=== PATIENT | male | born 1975 | race Two or more races ===

== ENCOUNTER 2024-07-17 07:49 | Inpatient (IN) | payer MEDICAID, OTHER ==
[~2024-07-17] VITALS: Ht 180.3 cm; Wt 110.5 kg
--- NOTE | 2024-07-17 08:14 | ED.PDOC ---
GI ASSESSMENT HPI Comments 48Y M with PMHx DM and cholecystectomy presents to ED for chief complaint n/v/d x1day. Pt denies chest pain, SOB, abd pain, and urinary symptoms. Pt states they were dx with PNA and influenza 3 weeks ago at a hospital in [place]. The pt was also seen last night in [facility] where he was dx with colitis after having a CT performed. Pt is unaware of further CT results. Pt has not picked up his medications. No other symptoms reported. Pt states he quit smoking tobacco one week ago. Chief Complaint: Nausea/Vomiting Time Seen by MD: 07:57 Reviewed Notes: Nurses Notes, Medications, Allergies Allergies: Coded Allergies: Sulfamethoxazole w/Trimethoprim (Unverified Allergy, Severe, 08/05/18) Information Source: Patient Mode of Arrival: Ambulatory Timing: Days Duration: Since onset Quality: None Vomitus: Watery Stool: Loose, Watery Severity: Mild Recent: None Recent Hx of: None Pain Location: None Modifying Factors: Nothing Associated sign and symptoms: Nausea, Vomiting, Diarrhea Past Medical History PAST MEDICAL HISTORY: DM Surgical History: Cholecystectomy Family History Family History: Unknown Social History Smoker: Quit Less Than 1 Year (07/10/2024) Alcohol: Denies ETOH Use Drugs: Denies Drug Use Lives In: Home Constitutional: denies: chills, diaphoresis, fatigue, fever, malaise, sweats, weakness, others EENTM: denies: blurred vision, double vision, ear bleeding, ear discharge, ear drainage, ear pain, ear ringing, eye pain, eye redness, hearing loss, mouth pain, mouth swelling, nasal discharge, nose bleeding, nose congestion, nose pain, photophobia, tearing, throat pain, throat swelling, voice changes, others Respiratory: denies: cough, hemoptysis, orthopnea, SOB at rest, shortness of breath, SOB with excertion, stridor, wheezing, others Cardiovascular: denies: chest pain, dizzy spells, diaphoresis, Dyspnea on exertion, edema, irregular heart beat, left arm pain, lightheadedness, palpitations, PND, syncope, others Gastrointestinal: reports: diarrhea, nausea, vomiting; denies: abdomen distended, abdominal pain, blood streaked bowels, constipated, dysphagia, difficulty swallowing, hematemesis, melena, poor appetite, poor fluid intake, rectal bleeding, rectal pain, others Genitourinary: denies: burning, dysuria, flank pain, frequency, hematuria, incontinence, penile discharge, penile sore, pain, testicle pain, testicle swelling, urgency, others Neurological: denies: dizziness, fainting, headache, left sided numbness, left sided weakness, numbness, paresthesia, pre-existing deficit, right sided numbness, right sided weakness, seizure, speech problems, tingling, tremors, weakness, others Musculoskeletal: denies: back pain, gout, joint pain, joint swelling, muscle pain, muscle stiffness, neck pain, others Integumetry: denies: bruises, change in color, change in hair/nails, dryness, laceration, lesions, lumps, rash, wounds, others Allergic/Immunocompromised: denies: Difficulty Healing, Frequent Infections, Hives, Itching, others Hematologic/Lymphatic: denies: anemia, blood clots, easy bleeding, easy b ruising, swollen glands, others Endocrine: denies: excessive hunger, excessive sweating, excessive thirst, excessive urination, flushing, intolerance to cold, intolerance to heat, unexplained weight gain, unexplained weight loss, others Psychiatric: denies: anxiety, bipolar disorder, depression, hopeless, panic disorder, schizophrenia, sleepless, suicidal, others All Other Systems: Reviewed and Negative Physical Exam General Appearance: No Apparent Distress, Normal HEENT: Normal ENT Inspection, Pharynx Normal, TMs Normal Neck: Full Range of Motion, Non-Tender, Normal, Normal Inspection Respiratory: Chest Non-Tender, Lungs Clear, No Accessory Muscle Use, No Respiratory Distress, Normal Breath Sounds Cardiovascular: No Edema, No JVD, No Murmur, No Gallop, Normal Peripheral Pulses, Regular Rate/Rhythm Breast Exam: Deferred Gastrointestinal: No Organomegaly, Non Tender, No Pulsatile Mass, Normal Bowel Sounds, Soft Genitalia: Deferred Pelvic: Deferred Rectal: Deferred Extremities: No calf tenderness, Normal capillary refill, Normal inspection, Normal range of motion, Non-tender, No pedal edema Musculoskeletal : Apperance: Normal Neurologic: Alert, free lance model II-XII nml as Tested, No Motor Deficits, Normal Affect, Normal Mood, No Sensory Deficits Cerebellar Function: Normal Reflexes: Normal Skin: Dry, Normal Color, Warm Lymphatic: No Adenopathy Was a procedure done? Was a procedure done?: No GI differential Dx Differential Diagnosis: Appendicitis, Bowel Obstruction, Cholangitis, Cholecystitis, Constipation, Diverticular disease, Gastritis/PUD, Gastroenteritis, Hernia, Hepatitis, Pancreatitis, Urolithiasis, Dehydration, Diabetes/ DKA, Electrolyte Imbalance, Food Poisoning, Bacterial, Parasitic, Viral, Hypovolemia, Impaction, Malnutrition X-Ray, Labs, Meds, VS Vital Signs Date Time Temp Pulse Resp B/P (MAP) Pulse Ox O2 Delivery O2 Flow Rate FiO2 07/17/24 11:31 98.1 98 15 118/76 (90) 97 98.1 07/17/24 09:34 101 16 120/72 07/17/24 09:04 103 16 125/79 07/17/24 09:00 103 16 98 Room Air* 0 21 07/17/24 09:00 97.6 103 16 125/79 (94) 98 97.6 07/17/24 08:04 97.6 104 18 119/69 (86) 99 Lab Test 07/17/24 09:53 07/17/24 09:04 07/17/24 08:47 07/17/24 08:45 Range/Units Sodium Level 131 L 136-145 mmol/L Potassium Level 5.8 *H 3.5-5.1 mmol/L Chloride Level 103 98-107 mmol/L Carbon Dioxide Level 22 20-31 mmol/L Anion Gap 6 5-15 Blood Urea Nitrogen 36 H 9-23 mg/dL Creatinine 2.05 H 0.700-1.30 mg/dL Glomerular Filtration Rate Calc 39 >90 mL/min BUN/Creatinine Ratio 17.6 10.0-20.0 Serum Glucose 323 H 74-106 mg/dL Calcium Level 8.9 8.7-10.4 mg/dL Total Bilirubin 0.5 0.2-1.0 mg/dL Aspartate Amino Transferase (AST) 19 13-40 U/L Alanine Aminotransferase (ALT) 31 7-40 U/L Alkaline Phosphatase 120 H 46-116 U/L Total Protein 7.0 5.7-8.2 g/dL Albumin 3.9 3.2-4.8 g/dL Lipase 192 H 12-53 U/L Urine Color Yellow Yellow Urine Clarity Turbid H Clear Urine pH 6.0 5.0-9.0 Urine Specific [place] 1.017 1.001-1.035 Urine Protein 3+ H Negative Urine Ketones Negative Negative Urine Blood 1+ H Negative /uL Urine Nitrite Negative Negative Urine Bilirubin Negative Negative Urine Urobilinogen Normal Negative mg/dL Urine Leukocyte Esterase Negative Negative /uL Urine RBC 1 0 - 3 /hpf Urine WBC 4 0 - 3 /hpf Urine Squamous Epithelial Cells None seen <5 /hpf Urine Bacteria None seen None Seen /hpf Urine Hyaline Casts Few 0 - 2 /lpf Urine Glucose 4+ H Normal mg/dL Urine Opiates Screen Neg NEGATIVE Urine Fentanyl Screen Neg NEGATIVE Urine Barbiturates Screen Neg NEGATIVE Urine Phencyclidine Screen Neg NEGATIVE Urine Amphetamines Screen Pos NEGATIVE Urine Benzodiazepines Screen Neg NEGATIVE Urine Cocaine Screen Neg NEGATIVE Urine Cannabinoids Screen Pos NEGATIVE Blood Gas Specimen Type Arterial Blood Gas Sample Site Right radial Blood Gas Patient Temperature 37.0 Arterial Blood Date Drawn [id number] Arterial Blood pH 7.348 L 7.350-7.450 Arterial Blood Partial Pressure CO2 32.2 L 35.0-48.0 mmHg Arterial Blood Partial Pressure O2 79.9 L 83.0-108.0 mmHg Arterial Blood HCO3 17.3 L 21.0-28.0 mmol/L Arterial Blood Oxygen Saturation 94.8 94.0-98.0 % Arterial Blood Base Excess -7.2 L -2.0-3.0 mmol/L Arterial Blood Oxyhemoglobin 93.7 L 94.0-98.0 % Arterial Blood Carboxyhemoglobin 0.7 0.5-1.5 % Arterial Blood Methemoglobin 0.5 0.0-1.5 % Abhay Test Yes Blood Gas Total Hemoglobin 13.20 L 13.5-17.5 g/dL Blood Gas Modality Room air FiO2 % 21.0 White Blood Count 14.5 H 4.4-10.8 10^3/uL Red Blood Count 4.30 L 4.5-5.90 10^6/uL Hemoglobin 12.5 L 13.5-17.5 g/dL Hematocrit 37.5 L 41.0-53.0 % Mean Corpuscular Volume 87.2 80.0-100.0 fL Mean Corpuscular Hemoglobin 29.1 28.0-32.0 pg Mean Corpuscular Hemoglobin Concent 33.4 32.0-36.0 g/dL Red Cell Distribution Width 14.8 H 11.8-14.3 % Platelet Count 686 H 140-450 10^3/uL Mean Platelet Volume 7.1 6.9-10.8 fL Neutrophils (%) (Auto) 77.6 37.0-80.0 % Lymphocytes (%) (Auto) 10.8 10.0-50.0 % Monocytes (%) (Auto) 10.3 0.0-12.0 % Eosinophils (%) (Auto) 1.0 0.0-7.0 % Basophils (%) (Auto) 0.3 0.0-2.0 % Neutrophils # (Auto) 11.2 H 1.6-8.6 10 ^3/uL Lymphocytes # (Auto) 1.6 0.4-5.4 10 ^3/uL Monocytes # (Auto) 1.5 H 0-1.3 10 ^3/uL Eosinophils # (Auto) 0.1 0-0.8 10 ^3/uL Basophils # (Auto) 0 0-0.2 10 ^3/uL Nucleated Red Blood Cells 0.0 % Test 07/17/24 08:43 07/17/24 07:58 Range/Units Influenza Type A Antigen Negative Negative Influenza Type B Antigen Negative Negative SARS-CoV-2 Antigen (Rapid) Negative NEGATIVE POC Glucose 286 H 70-106 mg/dl Current Medications Medications (Trade) Dose Ordered Sig/Beatris Route Start Time Stop Time Status Last Admin Sodium Chloride 1,000 ml @ 100 mls/hr Q10H ONCE IV 07/17/24 08:15 07/17/24 18:14 07/17/24 09:35 Ondansetron HCl (Zofran) 4 mg ONCE ONCE IV 07/17/24 08:15 07/17/24 08:16 DC 07/17/24 09:05 Morphine Sulfate 2 mg ONCE ONCE IV 07/17/24 08:15 07/17/24 08:16 DC 07/17/24 09:04 Insulin Human Regular (InsuLIN R) 6 units ONCE ONCE IV 07/17/24 08:45 07/17/24 08:46 DC 07/17/24 09:[address] [address] Ph: [phone] DIAGNOSTIC IMAGING Diagnostic Imaging Report : [id number] Signed PATIENT: SAVI HERNANDEZ ACCT: [id number] UNIT: [id number] : 1975 LOC: ER ROOM / BED: / AGE / SEX: 48 / M ADM STATUS: REG ER SERVICE 4 ORDERING PHYSICIAN: ROBINSON NUGENT MD PROCEDURE(s): ABPL - CT AB PEL WO CON-NO ORAL OR IV REASON: pain, n/v/d ORDER NUMBER(s): [id number], ACCESSION NUMBER(s): [id number] EXAM: CT Abdomen and Pelvis Without Intravenous Contrast CLINICAL INDICATION: pain, n/v/d TECHNIQUE: Axial computed tomography images of the abdomen and pelvis without intravenous contrast. This CT exam was performed using one or more of the following dose reduction techniques: automated exposure control, adjustment of the mA and/or kV according to patient size, and/or use of iterative reconstruction technique. RADIATION DOSE: CTDlvol= 24 mGy, DLP= 4032 mGy-cm COMPARISON: None FINDINGS: LUNG BASES: Partially visualized 5mm nodule in the left lung base. No consolidation. ABDOMEN: LIVER: Hepatomegaly with fatty infiltration. GALLBLADDER AND BILE DUCTS: Gallbladder is surgically absent. No ductal dilation. PANCREAS: Unremarkable. No ductal dilation. SPLEEN: Unremarkable. No splenomegaly. ADRENALS: Unremarkable. No mass. KIDNEYS AND URETERS: Unremarkable. No stones within either kidney. No hydronephrosis. STOMACH AND BOWEL: Unremarkable. No obstruction. No mucosal thickening. PELVIS: APPENDIX: Normal appendix. BLADDER: Bladder wall thickening which may be due to the decompressed state of the bladder or due to cystitis. No stones. REPRODUCTIVE: Unremarkable as visualized. ABDOMEN and PELVIS: INTRAPERITONEAL SPACE: Unremarkable. No free air. No significant fluid collection. BONES/JOINTS: No acute fracture. No dislocation. SOFT TISSUES: Unremarkable. VASCULATURE: Unremarkable. No abdominal aortic aneurysm. LYMPH NODES: Unremarkable. No enlarged lymph nodes. OTHER FINDINGS: . . . . IMPRESSION: 1. Normal appendix. 2. Bladder wall thickening which may be due to the decompressed state of the bladder or due to cystitis. 3. Hepatomegaly with fatty infiltration. 4. No obstructive uropathy. ATED BY: JORGE PANDEY MD DICTATED DATE/TIME: 07/17/24833 SIGNED BY: JORGE PANDEY MD SIGNED DATE/TIME: 07/17/24833 CC: Time of 1ST Reevaluation: 08:27 Reevaluation 1ST: Unchanged Time of 2ND Reevaluation: 11:57 Reevaluation 2ND: Improved Patient Education/Counseling: Diagnosis, Treatment, Prognosis, Need For Follow Up Family Education/Counseling: No Family Present Additional Information I reviewed the following notes from patient's past medical encounters: None The following tests were ordered, and results were reviewed by me: CBC, CMP, lipase, UA, covid 19 Ag, rapid influenza A&B, ABG, CT abd/pelvis WO contrast Additional Information was gathered from interviewing the following independent historians: None I reviewed and agreed with the following test results read by other providers: CT abd/pelvis WO contrast I discussed treatment and results with medical personnel. pt is diabetic, clinically dehydrated, with uncontrolled hyperglycemia, but is also on methamphetamine. pt will be admitted for hydration, emesis control and make sure he does not deteriorate into DKA. pt has been given ivf and insulin, and his k will be rechecked Departure 1 Departure Time of Disposition: 11:58 Impression: Primary Impression: Intractable nausea Additional Impressions: Uncontrolled diabetes mellitus with hyperglycemia Qualified Codes: E13.65 - Other specified diabetes mellitus with hyperglycemia Dehydration Hyperkalemia Methamphetamine abuse Disposition: ADMITTED INPATIENT Admit to: Tele Condition: Serious Discharged With: Self Critical Care Note Critical Care Time?: Yes (55 min-critical care time only) Critical care comment: Due to concerns for patients condition deteriorating, the care required my highest level of attention and readiness to intervene. I assessed the patient, reviewed the medical records, ordered the appropriate tests and treatments, then reassessed for results and responsiveness. I communicated with medical personnel and consultants and formulated a plan of care. Total critical care time excludes any procedures Stability Stability form required: No Heart Score Heart Score: Heart Score Response (Comments) Value History N/A 0 EKG N/A 0 Age N/A 0 Risk Factors N/A 0 Troponin N/A 0 Total 0 I personally scribed for ROBINSON NUGENT MD ([facility]) on 07/17/24 at 08:14. El ectronically submitted by Stacey Su ([facility]). I personally scribed for ROBINSON NUGENT MD ([employer]) on 07/17/24 at 09:13. Electronically submitted by Stacey Su ([facility]). ROBINSON NUGENT MD Jul 17, 2024 08:14
--- NOTE | 2024-07-17 08:36 | DVH ---
EXAM: CT Abdomen and Pelvis Without Intravenous Contrast CLINICAL INDICATION: pain, n/v/d TECHNIQUE: Axial computed tomography images of the abdomen and pelvis without intravenous contrast. This CT exam was performed using one or more of the following dose reduction techniques: automated exposure control, adjustment of the mA and/or kV according to patient size, and/or use of iterative r econstruction technique. RADIATION DOSE: CTDlvol= 24 mGy, DLP= 4032 mGy-cm COMPARISON: None FINDINGS: LUNG BASES: Partially visualized 5mm nodule in the left lung base. No consolidation. ABDOMEN: LIVER: Hepatomegaly with fatty infiltration. GALLBLADDER AND BILE DUCTS: Gallbladder is surgically absent. No ductal dilation. PANCREAS: Unremarkable. No ductal dilation. SPLEEN: Unremarkable. No splenomegaly. ADRENALS: Unremarkable. No mass. KIDNEYS AND URETERS: Unremarkable. No stones within either kidney. No hydronephrosis. STOMACH AND BOWEL: Unremarkable. No obstruction. No mucosal thickening. PELVIS: APPENDIX: Normal appendix. BLADDER: Bladder wall thickening which may be due to the decompressed state of the bladder or due to cystitis. No stones. REPRODUCTIVE: Unremarkable as visualized. ABDOMEN and PELVIS: INTRAPERITONEAL SPACE: Unremarkable. No free air. No significant fluid collection. BONES/JOINTS: No acute fracture. No dislocation. SOFT TISSUES: Unremarkable. VASCULATURE: Unremarkable. No abdominal aortic aneurysm. LYMPH NODES: Unremarkable. No enlarged lymph nodes. OTHER FINDINGS: . . . . IMPRESSION: 1. Normal appendix. 2. Bladder wall thickening which may be due to the decompressed state of the bladder or due to cysti tis. 3. Hepatomegaly with fatty infiltration. 4. No obstructive uropathy.
[2024-07-17 08:50] LABS: Base Excess -7.2 mmol/L (-2.0-3.0)
[2024-07-17 09:00] VITALS: PULSE 103; RESP 16; O2SAT 98
[2024-07-17 09:04] LABS: Basophils # (auto) 0 10 ^3/uL (0-0.2); Eosinophils # (auto) 0.1 10 ^3/uL (0-0.8); Hemoglobin 12.5 g/dL (13.5-17.5)
[2024-07-17] MEDS: MORPHINE SULFATE INJ 2 MG/ml SYRG IV ONE (09:04)
[2024-07-17] MEDS: ONDANSETRON HCL 4 MG/2 ML VIAL IV ONE (09:05)
[2024-07-17 09:08] LABS: Basophils % (auto) 0.3 % (0.0-2.0); Hematocrit 37.5 % (41.0-53.0); Lymphocytes # (auto) 1.6 10 ^3/uL (0.4-5.4); Lymphocytes % (auto) 10.8 % (10.0-50.0); Mean Corpuscular Hemoglobin 29.1 pg (28.0-32.0); Mean Corpuscular Hgb Conc. 33.4 g/dL (32.0-36.0); Mean Corpuscular Volume 87.2 fL (80.0-100.0); Monocytes # (auto) 1.5 10 ^3/uL (0-1.3); Monocytes % (auto) 10.3 % (0.0-12.0); Neutrophils # (auto) 11.2 10 ^3/uL (1.6-8.6); Neutrophils % (auto) 77.6 % (37.0-80.0); Platelet Count (auto) 686 10^3/uL (140-450); Red Cell Distribution Width 14.8 % (11.8-14.3); White Blood Cell 14.5 10^3/uL (4.4-10.8)
[2024-07-17] MEDS: SODIUM CHLORIDE 0.9% 1,000 ML IV ONE ×2 (09:35→12:25)
[2024-07-17 09:37] LABS: COVID19 ANTIGEN SOFIA FIA NEGATIVE (NEGATIVE)
[2024-07-17 09:38] LABS: Rapid Influenza A Negative (Negative); Rapid Influenza B Negative (Negative)
[2024-07-17] MEDS: InsuLIN REG 1unit/0.01ml Soln (100units/ml) IV ONE (09:40)
[2024-07-17 10:20] LABS: Anion Gap 6 (5-15)
[2024-07-17 10:25] LABS: BUN/Creatinine Ratio 17.6 (10.0-20.0)
[2024-07-17 10:34] LABS: Sodium 131 mmol/L (136-145)
[2024-07-17 10:35] LABS: Alanine Aminotransferase 31 U/L (7-40); Albumin 3.9 g/dL (3.2-4.8); Alkaline Phosphatase 120 U/L (46-116); Aspartate Aminotransferase 19 U/L (13-40); Bilirubin, Total 0.5 mg/dL (0.2-1.0); Blood Urea Nitrogen 36 mg/dL (9-23); Calcium 8.9 mg/dL (8.7-10.4); Carbon Dioxide 22 mmol/L (20-31); Chloride 103 mmol/L (98-107); Glucose 323 mg/dL (74-106)
[2024-07-17 10:37] LABS: Potassium 5.8 mmol/L (3.5-5.1)
[2024-07-17 11:04] LABS: Lipase 192 U/L (12-53)
[2024-07-17 11:34] LABS: Urine Bacteria None Seen /hpf (None Seen)
[2024-07-17 11:44] LABS: Urine Blood 1+ /uL (Negative); Urine Clarity Turbid (Clear); Urine Color Yellow (Yellow); Urine Hyaline Cast FEW /lpf (0 - 2); Urine Protein, UAD 3+ (Negative); Urine Specific Gravity 1.017 (1.001-1.035); Urine Squamous Epithelial Cell None Seen /hpf (<5); Urine Urobilinogen Normal (Negative); Urine WBC 4 /hpf (0 - 3)
[2024-07-17 11:54] LABS: Cannabinoid Screen, Urine Pos (NEGATIVE); Opiate Scree,Urine Neg (NEGATIVE)
[2024-07-17 11:55] LABS: Amphetamine Screen, Urine Pos (NEGATIVE); Barbiturate Scree,Urine Neg (NEGATIVE); Benzodiazephine Screen, Urine Neg (NEGATIVE); Cocaine Screen, Urine Neg (NEGATIVE); Phencyclidine Screen, Urine Neg (NEGATIVE)
[2024-07-17] MEDS ORDERED: DEXTROSE (50%) 50ML SYRG IV PRN (13:30)
[2024-07-17] MEDS ORDERED: VANCOMYCIN PER PHARMACY 0 MG IV SCH (13:30)
[2024-07-17] MEDS ORDERED: ONDANSETRON HCL 4 MG/2 ML VIAL IV PRN (13:30)
--- NOTE | 2024-07-17 13:39 | DVHHP2 ---
History of Present Illness Reason for Visit: Nausea, vomiting, diarrhea, and abdominal pain History of Present Illness Abhishek Lai is a 48-year-old male with past medical history of hypertension, diabetes, diabetic neuropathy, ventral hernia, and cholecystectomy who presents to the ED with nausea, vomiting, diarrhea, and abdominal pain x2 days. Patient reports that his abdominal pain is 7/10 constant and throbbing. He states that there are no triggering or alleviating factors. Patient states that he was just recently discharged from [facility] and diagnosed with colitis. Patient also states that before that he was at [facility] diagnosed with a UTI and received and completed antibiotic treatment. Patient denies any recent ingestion of spoiled food, recent sick contacts, chest pain, shortness of breath , fever, chills, lightheadedness, and dizziness. Patient does report that he was sick 3 weeks ago with a cold. Cardiovascular: HTN Endocrine: Diabetes Past Medical History Diabetic neuropathy Ventral Hernia Past Surgical History: Cholecystectomy Family History: DM, Other (Dad with diabetes) Smoke: Quit ALCOHOL: none Drugs: Marijuana, Other (Amphetamines) Lives: with Family Domestic Violence: Neg Review of Systems Constitutional: No: Fever, Chills, Sweats, Weakness, Malaise, Other Eyes: No: Pain, Vision change, Conjunctivae inflammation, Eyelid inflammation, Other, Redness ENT: No: Ear pain, Ear discharge, Nose pain, Nose discharge, Nose congestion, Mouth pain, Mouth swelling, Throat pain, Throat swelling, Other Respiratory: No: Cough, Dry, Shortness of breath, SOB with excertion, Wheezing, Hemoptysis, Pleuritic Pain, Sputum, Wheezing, Other Cardiovascular: No: Chest Pain, Palpitations, Orthopnea, Paroxysmal Noc. Dyspnea, Edema, Lt Headedness, Other Gastrointestinal: Nausea, Vomiting, Abdominal Pain, Diarrhea; No: Constipation, Melena, Hematochezia, Other Genitourinary: No Dysuria, No Frequency, No Incontinence, No Hematuria, No Retention, No Other Musculoskeletal: No: other, neck pain, shoulder pain, arm pain, back pain, hand pain, leg pain, foot pain Skin: No: Rash, Lesions, Jaundice, Bruising, Other Neurological: No: Weakness, Numbness, Incoordination, Change in speech, Confusion, Seizures, Other Allergies: Coded Allergies: Sulfamethoxazole w/Trimethoprim (Unverified Allergy, Severe, 08/05/18) Exam Vital Signs Vital Signs Date Time Temp Pulse Resp B/P (MAP) Pulse Ox O2 Delivery O2 Flow Rate FiO2 07/17/24 11:31 98.1 98 15 118/76 (90) 97 98.1 07/17/24 09:00 Room Air* 0 21 General Appearance: Alert, Oriented X3, Cooperative, No acute distress HEENT: Atraumatic, PERRLA, EOMI, Mucous membr. moist/pink Respiratory: Clear to auscultation, Normal air movement Cardiovascular: Regular rate, Normal S1, Normal S2, No murmurs Abdominal: Normal bowel sounds, Soft, No hepatospenomegaly, No masses Extremities: No clubbing, No cyanosis, No edema, Normal pulses, No tenderness/swelling Skin: No rashes, No breakdown, No significant lesion Neuro: Normal gait, Normal speech, Strength at 5/5 X4 ext, Normal tone, Sensation intact Psych/Mental Status: Mental status NL, Mood NL Labs/Xrays Labs Test 07/17/24 13:00 07/17/24 09:53 07/17/24 09:04 07/17/24 08:47 Range/Units Total Bilirubin 0.5 0.2-1.0 mg/dL Aspartate Amino Transferase (AST) 19 13-40 U/L Alanine Aminotransferase (ALT) 31 7-40 U/L Alkaline Phosphatase 120 H 46-116 U/L Total Protein 7.0 5.7-8.2 g/dL Albumin 3.9 3.2-4.8 g/dL Lipase 192 H 12-53 U/L Urine Color Yellow Yellow Urine Clarity Turbid H Clear Urine pH 6.0 5.0-9.0 Urine Specific [place] 1.017 1.001-1.035 Urine Protein 3+ H Negative Urine Ketones Negative Negative Urine Blood 1+ H Negative /uL Urine Nitrite Negative Negative Urine Bilirubin Negative Negative Urine Urobilinogen Normal Negative mg/dL Urine Leukocyte Esterase Negative Negative /uL Urine RBC 1 0 - 3 /hpf Urine WBC 4 0 - 3 /hpf Urine Squamous Epithelial Cells None seen <5 /hpf Urine Bacteria None seen None Seen /hpf Urine Hyaline Casts Few 0 - 2 /lpf Urine Glucose 4+ H Normal mg/dL Urine Opiates Screen Neg NEGATIVE Urine Fentanyl Screen Neg NEGATIVE Urine Barbiturates Screen Neg NEGATIVE Urine Phencyclidine Screen Neg NEGATIVE Urine Amphetamines Screen Pos NEGATIVE Urine Benzodiazepines Screen Neg NEGATIVE Urine Cocaine Screen Neg NEGATIVE Urine Cannabinoids Screen Pos NEGATIVE Blood Gas Specimen Type Arterial Blood Gas Sample Site Right radial Blood Gas Patient Temperature 37.0 Arterial Blood Date Drawn [id number] Arterial Blood pH 7.348 L 7.350-7.450 Arterial Blood Partial Pressure CO2 32.2 L 35.0-48.0 mmHg Arterial Blood Partial Pressure O2 79.9 L 83.0-108.0 mmHg Arterial Blood HCO3 17.3 L 21.0-28.0 mmol/L Arterial Blood Oxygen Saturation 94.8 94.0-98.0 % Arterial Blood Base Excess -7.2 L -2.0-3.0 mmol/L Arterial Blood Oxyhemoglobin 93.7 L 94.0-98.0 % Arterial Blood Carboxyhemoglobin 0.7 0.5-1.5 % Arterial Blood Methemoglobin 0.5 0.0-1.5 % Abhay Test Yes Blood Gas Total Hemoglobin 13.20 L 13.5-17.5 g/dL Blood Gas Modality Room air FiO2 % 21.0 Test 07/17/24 08:45 07/17/24 08:43 07/17/24 07:58 Range/Units White Blood Count 14.5 H 4.4-10.8 10^3/uL Red Blood Count 4.30 L 4.5-5.90 10^6/uL Hemoglobin 12.5 L 13.5-17.5 g/dL Hematocrit 37.5 L 41.0-53.0 % Mean Corpuscular Volume 87.2 80.0-100.0 fL Mean Corpuscular Hemoglobin 29.1 28.0-32.0 pg Mean Corpuscular Hemoglobin Concent 33.4 32.0-36.0 g/dL Red Cell Distribution Width 14.8 H 11.8-14.3 % Platelet Count 686 H 140-450 10^3/uL Mean Platelet Volume 7.1 6.9-10.8 fL Neutrophils (%) (Auto) 77.6 37.0-80.0 % Lymphocytes (%) (Auto) 10.8 10.0-50.0 % Monocytes (%) (Auto) 10.3 0.0-12.0 % Eosinophils (%) (Auto) 1.0 0.0-7.0 % Basophils (%) (Auto) 0.3 0.0-2.0 % Neutrophils # (Auto) 11.2 H 1.6-8.6 10 ^3/uL Lymphocytes # (Auto) 1.6 0.4-5.4 10 ^3/uL Monocytes # (Auto) 1.5 H 0-1.3 10 ^3/uL Eosinophils # (Auto) 0.1 0-0.8 10 ^3/uL Basophils # (Auto) 0 0-0.2 10 ^3/uL Nucleated Red Blood Cells 0.0 % Influenza Type A Antigen Negative Negative Influenza Type B Antigen Negative Negative SARS-CoV-2 Antigen (Rapid) Negative NEGATIVE POC Glucose 286 H 70-106 mg/dl EXAM: CT Abdomen and Pelvis Without Intravenous Contrast CLINICAL INDICATION: pain, n/v/d TECHNIQUE: Axial computed tomography images of the abdomen and pelvis without intravenous contrast. This CT exam was performed using one or more of the following dose reduction techniques: automated exposure control, adjustment of the mA and/or kV according to patient size, and/or use of iterative reconstruction technique. RADIATION DOSE: CTDlvol= 24 mGy, DLP= 4032 mGy-cm COMPARISON: None FINDINGS: LUNG BASES: Partially visualized 5mm nodule in the left lung base. No consolidation. ABDOMEN: LIVER: Hepatomegaly with fatty infiltration. GALLBLADDER AND BILE DUCTS: Gallbladder is surgically absent. No ductal dilation. PANCREAS: Unremarkable. No ductal dilation. SPLEEN: Unremarkable. No splenomegaly. ADRENALS: Unremarkable. No mass. KIDNEYS AND URETERS: Unremarkable. No stones within either kidney. No hydronephrosis. STOMACH AND BOWEL: Unremarkable. No obstruction. No mucosal thickening. PELVIS: APPENDIX: Normal appendix. BLADDER: Bladder wall thickening which may be due to the decompressed state of the bladder or due to cystitis. No stones. REPRODUCTIVE: Unremarkable as visualized. ABDOMEN and PELVIS: INTRAPERITONEAL SPACE: Unremarkable. No free air. No significant fluid collection. BONES/JOINTS: No acute fracture. No dislocation. SOFT TISSUES: Unremarkable. VASCULATURE: Unremarkable. No abdominal aortic aneurysm. LYMPH NODES: Unremarkable. No enlarged lymph nodes. OTHER FINDINGS: . . . . IMPRESSION: 1. Normal appendix. 2. Bladder wall thickening which may be due to the decompressed state of the bladder or due to cystitis. 3. Hepatomegaly with fatty infiltration. 4. No obstructive uropathy. Assessment/Plan Assessment/Plan Assessment/Plan: Intractable abdominal pain likely due to colitis Leukocytosis likely due to Cystitis Hyperkalemia Labs A.m. labs UA Flu negative COVID negative NS given ED 2 L Insulin given in ED Pain management Antiemetics Drug screen UA ABG CT abdomen and pelvis Lipase Lactic IV antibiotics-vancomycin + Zosyn Blood alcohol Hepatomegaly with fatty infiltration. Follow up outpatient with PCP FEN/PPX diet Hep-Lock DVT prophylaxis not indicated patient ambulating PUD prophylaxis - not indicated no history of GERD or GI bleed Admit to [facility] surg Home medications reconciled Discussed plan of care with patient and nurse Plan discussed with: Patient My Orders Orders - AURORA URIAS Procedure Category Date Status Time Vancomycin Per PHA 07/17/24 Logged Pharmacy 13:30 Piperacillin-Tazob PHA 07/17/24 Logged 3.375gm (Zosyn 3.375g 13:30 Piperacillin-Tazob PHA 07/17/24 Logged 3.375gm (Zosyn 3.375g 14:00 Hemoglobin A1c LAB 07/17/24 Transmitted 13:21 Glucose Blood PHA 07/17/24 Logged (Accu-Chek Comfort 17:00 Insulin R (Human) PHA 07/17/24 Logged (Insulin R) 17:00 Dextrose 50% Syringe PHA 07/17/24 Transmitted 13:30 Admit ADMIT 07/17/24 Transmitted 13:21 Allergies EPIFANIO 07/17/24 In Process 13:21 Code Status CODE 07/17/24 Transmitted 13:21 2 Gm Sodium Diet DIET 07/17/24 Transmitted Lunch Hydrocodone-Acet PHA 07/17/24 Logged 5/325mg Tab ([facility] 13:30 Ondansetron Hcl PHA 07/17/24 Logged (Zofran) 13:30 Complete Blood Count LAB 07/18/24 Verified 04:00 Comprehensive LAB 07/18/24 Verified Metabolic Panel 04:00 Acetaminophen Tablet PHA 07/17/24 Logged (Tylenol Tablet) 13:30 Date of Service: Jul 17, 2024 Billing Provider: AURORA URIAS Common Visit Codes: [id number] INP/OBS CARE (HIGH) AURORA URIAS Jul 17, 2024 13:39
[2024-07-17 13:44] LABS: Chloride 106 mmol/L (98-107); Potassium 4.8 mmol/L (3.5-5.1)
[2024-07-17 13:45] LABS: Anion Gap 6 (5-15); Carbon Dioxide 21 mmol/L (20-31)
[2024-07-17 13:50] LABS: BUN/Creatinine Ratio 17.7 (10.0-20.0)
[2024-07-17 14:15] LABS: Blood Urea Nitrogen 35 mg/dL (9-23); Calcium 8.6 mg/dL (8.7-10.4); Glucose 258 mg/dL (74-106); Sodium 133 mmol/L (136-145)
[2024-07-17 14:43] VITALS: PULSE 92; RESP 18; O2SAT 96
[2024-07-17] MEDS: PIPERACILLIN-TAZOB 3.375GM 100 ML IV ONE (14:46)
[2024-07-17 14:56] VITALS: BP 135/74; PULSE 92; RESP 18; TEMP 98; O2SAT 96
[2024-07-17] MEDS: VANCOMYCIN 1GM/250ML KIT 250 ML IV ONE (16:55)
[2024-07-17 17:00] VITALS: BP 128/71; PULSE 93; RESP 16; TEMP 98.5; O2SAT 98
[2024-07-17] MEDS: HYDROcodone-ACET 5/325MG TAB PO PRN (17:18)
[2024-07-17] MEDS: InsuLIN REG 1unit/0.01ml Soln (100units/ml) SC SCH (17:21)
[2024-07-17] MEDS: ACCU-CHEK COMFORT CURVE STRIP VI SCH (17:22)
[2024-07-17 21:00] VITALS: BP 110/78; PULSE 70; RESP 16; TEMP 97.5; O2SAT 98
[2024-07-17 21:14] VITALS: BP 168/73; PULSE 97; RESP 19; TEMP 98.1; O2SAT 97
[2024-07-17] MEDS: PIPERACILLIN-TAZOB 3.375GM 100 ML IV SCH (21:36)
[2024-07-18] VITALS (8 sets, daily range): BP systolic 146–163; BP diastolic 76–94; PULSE 87–95; RESP 16–21; TEMP 97.5–98.7; O2SAT 94–97
[2024-07-18 07:07] LABS: Alanine Aminotransferase 23 U/L (7-40); Alkaline Phosphatase 100 U/L (46-116); Anion Gap 6 (5-15); Aspartate Aminotransferase 17 U/L (13-40); BUN/Creatinine Ratio 18.6 (10.0-20.0); Blood Urea Nitrogen 27 mg/dL (9-23); Calcium 8.8 mg/dL (8.7-10.4); Carbon Dioxide 21 mmol/L (20-31); Chloride 112 mmol/L (98-107); Glucose 224 mg/dL (74-106); Potassium 4.4 mmol/L (3.5-5.1); Sodium 139 mmol/L (136-145)
[2024-07-18 07:08] LABS: Bilirubin, Total 0.3 mg/dL (0.2-1.0); Total Protein 5.5 g/dL (5.7-8.2)
[2024-07-18 07:11] LABS: Basophils # (auto) 0 10 ^3/uL (0-0.2); Eosinophils # (auto) 0.2 10 ^3/uL (0-0.8); Monocytes # (auto) 0.9 10 ^3/uL (0-1.3); White Blood Cell 7.7 10^3/uL (4.4-10.8)
[2024-07-18 07:14] LABS: Basophils % (auto) 0.2 % (0.0-2.0); Hematocrit 32.4 % (41.0-53.0); Lymphocytes # (auto) 1.6 10 ^3/uL (0.4-5.4); Lymphocytes % (auto) 21.4 % (10.0-50.0); Mean Corpuscular Hemoglobin 29.4 pg (28.0-32.0); Mean Corpuscular Hgb Conc. 33.9 g/dL (32.0-36.0); Mean Corpuscular Volume 86.5 fL (80.0-100.0); Monocytes % (auto) 11.2 % (0.0-12.0); Neutrophils % (auto) 65.2 % (37.0-80.0); Platelet Count (auto) 487 10^3/uL (140-450); Red Blood Cells 3.74 10^6/uL (4.5-5.90); Red Cell Distribution Width 14.8 % (11.8-14.3)
[2024-07-18] MEDS: InsuLIN REG 1unit/0.01ml Soln (100units/ml) SC SCH ×2 (12:07→21:35)
--- NOTE | 2024-07-18 12:48 | DVHPN2 ---
Reviewed: Care Plan, H&P, Labs, Medications, Previous Orders, Radiology Changes from previous H/P or p: No Changes Eyes: No Pain, No Vision change, No Conjunctivae inflammation, No Eyelid inflammation, No Other, No Redness ENT: No Ear pain, No Ear discharge, No Nose pain, No Nose discharge, No Nose congestion, No Mouth pain, No Mouth swelling, No Throat pain, No Throat swelling, No Other Cardiovascular: No Chest Pain, No Palpitations, No Orthopnea, No Paroxysmal Noc. Dyspnea, No Edema, No Lt Headedness, No Other Respiratory: No Cough, No Dry, No Shortness of breath, No SOB with excertion, No Wheezing, No Hemoptysis, No Pleuritic Pain, No Sputum, No Other Gastrointestinal: Nausea, Vomiting, Abdominal Pain, Diarrhea; No Constipation, No Melena, No Hematochezia, No Other Genitourinary: No Dysuria, No Frequency, No Incontinence, No Hematuria, No Retention, No Other Musculoskeletal: No other, No neck pain, No shoulder pain, No arm pain, No back pain, No hand pain, No leg pain, No foot pain Skin: No Rash, No Lesions, No Jaundice, No Bruising, No Other Objective Vitals Vital Signs Date Time Temp Pulse Resp B/P (MAP) Pulse Ox O2 Delivery O2 Flow Rate FiO2 07/18/24 09:00 98.7 95 18 155/94 (114) 94 98.7 07/17/24 21:14 Room Air* 0 21 Intake/Output Intake and Output 07/18/24 07:00 Intake Total 1250 ml Output Total 1 ml Balance 1249 ml Intake Oral 800 ml IV Total 450 ml Output Stool Total 1 ml # Voids 2 Medications Current Medications Medications Dose Ordered Sig/Beatris Route Start Time Stop Time Status Last Admin Dose Admin Vancomycin HCl 0 ml @ 0 mls/hr UD IV 07/17/24 13:30 Piperacillin Sod/ Tazobactam Sod 100 ml @ 25 mls/hr Q8HR IV 07/17/24 22:00 07/18/24 05:17 25 MLS/HR Diagnostic Test (Pha) 1 strip ACHS 07/17/24 17:00 07/18/24 12:06 1 STRIP Dextrose 50 ml UD PRN IV 07/17/24 13:30 Acetaminophen/ Hydrocodone Bitart 1 tab Q4HP PRN PO 07/17/24 13:30 07/18/24 11:08 1 TAB Ondansetron HCl 4 mg Q4HP PRN IV 07/17/24 13:30 Acetaminophen 650 mg Q6HP PRN PO 07/17/24 13:30 Insulin Human Regular HS SC 07/18/24 22:00 Insulin Glargine 30 units HS SC 07/18/24 22:00 Insulin Human Regular AC SC 07/18/24 12:00 07/18/24 12:07 20 UNITS Laboratory Results Laboratory Tests 07/18/24 06:18 Chemistry Test 07/17/24 13:00 07/18/24 06:18 Calcium Level 8.6 mg/dL (8.7-10.4) L 8.8 mg/dL (8.7-10.4) Albumin 3.0 g/dL (3.2-4.8) L Total Protein 5.5 g/dL (5.7-8.2) L LFT Test 07/18/24 06:18 Alanine Aminotransferase (ALT) 23 U/L (7-40) Alkaline Phosphatase 100 U/L (46-116) Aspartate Amino Transferase (AST) 17 U/L (13-40) Total Bilirubin 0.3 mg/dL (0.2-1.0) HgA1c, TSH Test 07/17/24 13:00 Hemoglobin A1c 12.0 % A1C (<5.7) H Urinalysis Test 07/17/24 09:04 Urine Color Yellow (Yellow) Urine Clarity Turbid (Clear) H Urine pH 6.0 (5.0-9.0) Urine Specific [place] 1.017 (1.001-1.035) Urine Protein 3+ (Negative) H Urine Ketones Negative (Negative) Urine Blood 1+ /uL (Negative) H Urine Nitrite Negative (Negative) Urine Bilirubin Negative (Negative) Urine Urobilinogen Normal mg/dL (Negative) Urine Leukocyte Esterase Negative /uL (Negative) Urine RBC 1 /hpf (0 - 3) Urine WBC 4 /hpf (0 - 3) Urine Squamous Epithelial Cells None seen /hpf (<5) Urine Bacteria None seen /hpf (None Seen) Urine Hyaline Casts Few /lpf (0 - 2) Urine Glucose 4+ mg/dL (Normal) H Labs and/or images reviewed: Labs reviewed by me, Image(s) reviewed by me Assessment/Plan Assessment/Plan Acute intractable abdominal pain with nausea and vomiting Sepsis secondary to urinary tract infection : Continue vancomycin and Zosyn Urinary tract infection: Blood cultures urine cultures Rocephin Hypertension Diabetes History of cholecystectomy History of hernia repair Recent history of colitis treated at [facility] and UTI treated [facility] Current meth abuser and marijuana abuse:Counselling Plan discussed with: Patient My Orders Orders - STAN TREVINO MD Procedure Category Date Status Time Insulin R (Human) PHA 07/18/24 In Process (Insulin R) 22:00 Insulin Lantus PHA 07/18/24 In Process (Glargine) (Lantus) 22:00 Insulin R (Human) PHA 07/18/24 In Process (Insulin R) 12:00 Blood Culture AMMON 07/18/24 Transmitted 12:41 Date of Service: Jul 18, 2024 Billing Provider: STAN TREVINO MD Common Visit Codes: [id number] INP/OBS CARE(HIGH) STAN TREVINO MD Jul 18, 2024 12:48
[2024-07-18] MEDS ORDERED: InsuLIN REG 1unit/0.01ml Soln (100units/ml) SC SCH (17:00)
[2024-07-18] MEDS: VANCOMYCIN 1GM/250ML KIT 250 ML IV ONE (17:10)
[2024-07-18] MEDS ORDERED: CHLO25TA2 PO (18:25)
[2024-07-18] MEDS ORDERED: LISI10TA34 PO (18:25)
[2024-07-18] MEDS ORDERED: GLIP10TA9 PO (18:25)
[2024-07-18] MEDS ORDERED: CIPR-173 PO (18:25)
[2024-07-18] MEDS ORDERED: BENZ100C97 PO (18:25)
[2024-07-18] MEDS ORDERED: BACL10TA PO (18:25)
[2024-07-18] MEDS ORDERED: SERT-206 PO (18:25)
[2024-07-18] MEDS: INSULIN LANTUS (GLARGINE) 1 /0.01ml (100units/ml) SC SCH (21:34)
[2024-07-19] VITALS (9 sets, daily range): BP systolic 137–167; BP diastolic 71–94; PULSE 83–92; RESP 16–21; TEMP 97.9–98.4; O2SAT 95–100
--- NOTE | 2024-07-19 10:19 | DVHPN2 ---
Reviewed: Care Plan, H&P, Labs, Medications, Previous Orders, Radiology Changes from previous H/P or p: No Changes Eyes: No Pain, No Vision change, No Conjunctivae inflammation, No Eyelid inflammation, No Other, No Redness ENT: No Ear pain, No Ear discharge, No Nose pain, No Nose discharge, No Nose congestion, No Mouth pain, No Mouth swelling, No Throat pain, No Throat swelling, No Other Cardiovascular: No Chest Pain, No Palpitations, No Orthopnea, No Paroxysmal Noc. Dyspnea, No Edema, No Lt Headedness, No Other Respiratory: No Cough, No Dry, No Shortness of breath, No SOB with excertion, No Wheezing, No Hemoptysis, No Pleuritic Pain, No Sputum, No Other Gastrointestinal: Nausea, Vomiting, Abdominal Pain, Diarrhea; No Constipation, No Melena, No Hematochezia, No Other Genitourinary: No Dysuria, No Frequency, No Incontinence, No Hematuria, No Retention, No Other Musculoskeletal: No other, No neck pain, No shoulder pain, No arm pain, No back pain, No hand pain, No leg pain, No foot pain Skin: No Rash, No Lesions, No Jaundice, No Bruising, No Other Objective Vitals Vital Signs Date Time Temp Pulse Resp B/P (MAP) Pulse Ox O2 Delivery O2 Flow Rate FiO2 07/19/24 05:00 98.3 88 16 157/83 (107) 97 98.3 07/18/24 20:00 Room Air* 0 21 Intake/Output Intake and Output 07/19/24 07:00 Intake Total 3170 ml Balance 3170 ml Intake Oral 2720 ml IV Total 450 ml # Voids 3 Medications Current Medications Medications Dose Ordered Sig/Beatris Route Start Time Stop Time Status Last Admin Dose Admin Vancomycin HCl 0 ml @ 0 mls/hr UD IV 07/17/24 13:30 Piperacillin Sod/ Tazobactam Sod 100 ml @ 25 mls/hr Q8HR IV 07/17/24 22:00 07/19/24 06:00 25 MLS/HR Diagnostic Test (Pha) 1 strip ACHS 07/17/24 17:00 07/19/24 06:06 1 STRIP Dextrose 50 ml UD PRN IV 07/17/24 13:30 Acetaminophen/ Hydrocodone Bitart 1 tab Q4HP PRN PO 07/17/24 13:30 07/19/24 09:00 1 TAB Ondansetron HCl 4 mg Q4HP PRN IV 07/17/24 13:30 Acetaminophen 650 mg Q6HP PRN PO 07/17/24 13:30 Insulin Human Regular HS SC 07/18/24 22:00 07/18/24 21:35 4 UNITS Insulin Glargine 30 units HS SC 07/18/24 22:00 07/18/24 21:34 30 UNITS Insulin Human Regular AC SC 07/18/24 12:00 07/19/24 06:11 8 UNITS Laboratory Results Laboratory Tests 07/18/24 06:18 07/19/24 06:36 Urinalysis Test 07/17/24 09:04 Urine Color Yellow (Yellow) Urine Clarity Turbid (Clear) H Urine pH 6.0 (5.0-9.0) Urine Specific [place] 1.017 (1.001-1.035) Urine Protein 3+ (Negative) H Urine Ketones Negative (Negative) Urine Blood 1+ /uL (Negative) H Urine Nitrite Negative (Negative) Urine Bilirubin Negative (Negative) Urine Urobilinogen Normal mg/dL (Negative) Urine Leukocyte Esterase Negative /uL (Negative) Urine RBC 1 /hpf (0 - 3) Urine WBC 4 /hpf (0 - 3) Urine Squamous Epithelial Cells None seen /hpf (<5) Urine Bacteria None seen /hpf (None Seen) Urine Hyaline Casts Few /lpf (0 - 2) Urine Glucose 4+ mg/dL (Normal) H Microbiology Microbiology Date/Time Source Procedure Growth Status 07/17/24 23:00 Nose MRSA Screen - Final Complete Labs and/or images reviewed: Labs reviewed by me, Image(s) reviewed by me Assessment/Plan Assessment/Plan Acute intractable abdominal pain with nausea and vomiting Sepsis secondary to urinary tract infection : Continue vancomycin and Zosyn Urinary tract infection: Blood cultures pending, urine cultures pending, Hypertension Diabetes History of cholecystectomy History of hernia repair Recent history of colitis [facility] at [facility] Current meth abuser and marijuana abuse:Counselling Plan discussed with: Patient My Orders Orders - STAN TREVINO MD Procedure Category Date Status Time Insulin R (Human) PHA 07/18/24 In Process (Insulin R) 22:00 Insulin Lantus PHA 07/18/24 In Process (Glargine) (Lantus) 22:00 Insulin R (Human) PHA 07/18/24 In Process (Insulin R) 12:00 Blood Culture AMMON 07/18/24 In Process 12:41 Urine Bacterial AMMON 07/18/24 In Process Culture 12:44 Date of Service: Jul 19, 2024 Billing Provider: STAN TREVINO MD Common Visit Codes: [id number] INP/OBS CARE(HIGH) STAN TREVINO MD Jul 19, 2024 10:19
[2024-07-19] MEDS: LISINOPRIL 20 MG TAB PO ONE (11:19)
[2024-07-19] MEDS: VANCOMYCIN 750MG KIT 100 ML IV SCH (11:53)
[2024-07-19] MEDS ORDERED: VANCOMYCIN 1.25GM/250ML 250 ML IV ONE (12:00)
[2024-07-19] MEDS: cloNIDine HCL 0.1 MG TAB PO PRN (15:38)
[2024-07-20] VITALS (8 sets, daily range): BP systolic 136–173; BP diastolic 70–96; PULSE 78–83; RESP 18–19; TEMP 97.5–98.4; O2SAT 91–99
[2024-07-20] MEDS: ACETAMINOPHEN 325 MG TAB PO PRN (04:07)
--- NOTE | 2024-07-20 08:40 | DVHPN2 ---
Reviewed: Care Plan, H&P, Labs, Medications, Previous Orders, Radiology Changes from previous H/P or p: No Changes Eyes: No Pain, No Vision change, No Conjunctivae inflammation, No Eyelid inflammation, No Other, No Redness ENT: No Ear pain, No Ear discharge, No Nose pain, No Nose discharge, No Nose congestion, No Mouth pain, No Mouth swelling, No Throat pain, No Throat swelling, No Other Cardiovascular: No Chest Pain, No Palpitations, No Orthopnea, No Paroxysmal Noc. Dyspnea, No Edema, No Lt Headedness, No Other Respiratory: No Cough, No Dry, No Shortness of breath, No SOB with excertion, No Wheezing, No Hemoptysis, No Pleuritic Pain, No Sputum, No Other Gastrointestinal: Nausea, Vomiting, Abdominal Pain, Diarrhea; No Constipation, No Melena, No Hematochezia, No Other Genitourinary: No Dysuria, No Frequency, No Incontinence, No Hematuria, No Retention, No Other Musculoskeletal: No other, No neck pain, No shoulder pain, No arm pain, No back pain, No hand pain, No leg pain, No foot pain Skin: No Rash, No Lesions, No Jaundice, No Bruising, No Other Objective Vitals Vital Signs Date Time Temp Pulse Resp B/P (MAP) Pulse Ox O2 Delivery O2 Flow Rate FiO2 07/20/24 06:27 153/87 07/20/24 05:00 97.6 83 18 92 97.6 07/19/24 20:00 Room Air* 0 21 Intake/Output Intake and Output 07/20/24 07:00 Intake Total 2520 ml Balance 2520 ml Intake Oral 1885 ml IV Total 635 ml # Voids 4 # Bowel Movements 3 Medications Current Medications Medications Dose Ordered Sig/Beatris Route Start Time Stop Time Status Last Admin Dose Admin Vancomycin HCl 0 ml @ 0 mls/hr UD IV 07/17/24 13:30 Piperacillin Sod/ Tazobactam Sod 100 ml @ 25 mls/hr Q8HR IV 07/17/24 22:00 07/20/24 05:27 25 MLS/HR Diagnostic Test (Pha) 1 strip ACHS 07/17/24 17:00 07/20/24 06:30 1 STRIP Dextrose 50 ml UD PRN IV 07/17/24 13:30 Acetaminophen/ Hydrocodone Bitart 1 tab Q4HP PRN PO 07/17/24 13:30 07/19/24 17:03 1 TAB Ondansetron HCl 4 mg Q4HP PRN IV 07/17/24 13:30 Acetaminophen 650 mg Q6HP PRN PO 07/17/24 13:30 07/20/24 04:07 650 MG Insulin Human Regular HS SC 07/18/24 22:00 07/19/24 22:07 6 UNITS Insulin Glargine 30 units HS SC 07/18/24 22:00 07/19/24 22:07 30 UNITS Insulin Human Regular AC SC 07/18/24 12:00 07/20/24 06:33 2 UNITS Lisinopril 20 mg DAILY PO 07/20/24 10:00 Vancomycin HCl 100 ml @ 100 mls/hr Q8H IV 07/19/24 12:00 07/20/24 04:06 100 MLS/HR Clonidine HCl 0.2 mg Q6HP PRN PO 07/19/24 15:15 07/20/24 05:27 0.2 MG Laboratory Results Laboratory Tests 07/18/24 06:18 07/19/24 06:36 Urinalysis Test 07/17/24 09:04 Urine Color Yellow (Yellow) Urine Clarity Turbid (Clear) H Urine pH 6.0 (5.0-9.0) Urine Specific [place] 1.017 (1.001-1.035) Urine Protein 3+ (Negative) H Urine Ketones Negative (Negative) Urine Blood 1+ /uL (Negative) H Urine Nitrite Negative (Negative) Urine Bilirubin Negative (Negative) Urine Urobilinogen Normal mg/dL (Negative) Urine Leukocyte Esterase Negative /uL (Negative) Urine RBC 1 /hpf (0 - 3) Urine WBC 4 /hpf (0 - 3) Urine Squamous Epithelial Cells None seen /hpf (<5) Urine Bacteria None seen /hpf (None Seen) Urine Hyaline Casts Few /lpf (0 - 2) Urine Glucose 4+ mg/dL (Normal) H Microbiology Microbiology Date/Time Source Procedure Growth Status 07/18/24 13:50 Blood Blood Culture - Preliminary NO GROWTH AFTER 24 HOURS OF INCUBATION. Resulted 07/17/24 23:00 Nose MRSA Screen - Final Complete Labs and/or images reviewed: Labs reviewed by me, Image(s) reviewed by me Assessment/Plan Assessment/Plan Acute intractable abdominal pain with nausea and vomiting Sepsis secondary to urinary tract infection : Continue vancomycin and Zosyn Urinary tract infection: Blood cultures pending, urine cultures pending, Hypertension Diabetes History of cholecystectomy History of hernia repair Recent history of [facility] Current meth abuser and marijuana abuse:Counselling Awaiting final urine culture report Plan discussed with: Patient My Orders Orders - STAN TREVINO MD Procedure Category Date Status Time Lisinopril Tablet PHA 07/20/24 In Process (Zestril Tablet) 10:00 Clonidine Hcl Tablet PHA 07/19/24 In Process (Catapres Tablet) 15:15 Date of Service: Jul 20, 2024 Billing Provider: STAN TREVINO MD Common Visit Codes: [id number] INP/OBS CARE(HIGH) STAN TREVINO MD Jul 20, 2024 08:40
[2024-07-20] MEDS: LISINOPRIL 20 MG TAB PO SCH (08:48)
[2024-07-20 12:13] LABS: Potassium 3.8 mmol/L (3.5-5.1); Sodium 139 mmol/L (136-145)
[2024-07-20 12:14] LABS: Anion Gap 5 (5-15); Calcium 9.1 mg/dL (8.7-10.4); Carbon Dioxide 27 mmol/L (20-31)
[2024-07-20 12:19] LABS: BUN/Creatinine Ratio 9.3 (10.0-20.0); Blood Urea Nitrogen 10 mg/dL (9-23)
[2024-07-20 12:22] LABS: Chloride 107 mmol/L (98-107); Glucose 186 mg/dL (74-106)
[2024-07-21 01:00] VITALS: BP 150/75; PULSE 75; RESP 18; TEMP 98; O2SAT 95
[2024-07-21 05:00] VITALS: BP 155/73; PULSE 72; RESP 19; TEMP 97.8; O2SAT 93
[2024-07-21 09:00] VITALS: BP 173/93; PULSE 79; RESP 18; TEMP 97.7; O2SAT 95
--- NOTE | 2024-07-21 09:19 | DVHPN2 ---
Reviewed: Care Plan, H&P, Labs, Medications, Previous Orders, Radiology Changes from previous H/P or p: No Changes Eyes: No Pain, No Vision change, No Conjunctivae inflammation, No Eyelid inflammation, No Other, No Redness ENT: No Ear pain, No Ear discharge, No Nose pain, No Nose discharge, No Nose congestion, No Mouth pain, No Mouth swelling, No Throat pain, No Throat swelling, No Other Cardiovascular: No Chest Pain, No Palpitations, No Orthopnea, No Paroxysmal Noc. Dyspnea, No Edema, No Lt Headedness, No Other Respiratory: No Cough, No Dry, No Shortness of breath, No SOB with excertion, No Wheezing, No Hemoptysis, No Pleuritic Pain, No Sputum, No Other Gastrointestinal: Nausea, Vomiting, Abdominal Pain, Diarrhea; No Constipation, No Melena, No Hematochezia, No Other Genitourinary: No Dysuria, No Frequency, No Incontinence, No Hematuria, No Retention, No Other Musculoskeletal: No other, No neck pain, No shoulder pain, No arm pain, No back pain, No hand pain, No leg pain, No foot pain Skin: No Rash, No Lesions, No Jaundice, No Bruising, No Other Objective Vitals Vital Signs Date Time Temp Pulse Resp B/P (MAP) Pulse Ox O2 Delivery O2 Flow Rate FiO2 07/21/24 08:00 Room Air* 0 21 07/21/24 05:00 97.8 72 19 155/73 (100) 93 97.8 Intake/Output Intake and Output 07/21/24 07:00 Intake Total 2945 ml Balance 2945 ml Intake Oral 2310 ml IV Total 635 ml # Voids 6 # Bowel Movements 2 Medications Current Medications Medications Dose Ordered Sig/Beatris Route Start Time Stop Time Status Last Admin Dose Admin Vancomycin HCl 0 ml @ 0 mls/hr UD IV 07/17/24 13:30 Piperacillin Sod/ Tazobactam Sod 100 ml @ 25 mls/hr Q8HR IV 07/17/24 22:00 07/21/24 05:36 25 MLS/HR Diagnostic Test (Pha) 1 strip ACHS 07/17/24 17:00 07/21/24 06:24 1 STRIP Dextrose 50 ml UD PRN IV 07/17/24 13:30 Acetaminophen/ Hydrocodone Bitart 1 tab Q4HP PRN PO 07/17/24 13:30 07/20/24 08:47 1 TAB Ondansetron HCl 4 mg Q4HP PRN IV 07/17/24 13:30 Acetaminophen 650 mg Q6HP PRN PO 07/17/24 13:30 07/20/24 04:07 650 MG Insulin Human Regular HS SC 07/18/24 22:00 07/20/24 21:47 4 UNITS Insulin Glargine 30 units HS SC 07/18/24 22:00 07/20/24 21:47 30 UNITS Insulin Human Regular AC SC 07/18/24 12:00 07/21/24 06:28 4 UNITS Lisinopril 20 mg DAILY PO 07/20/24 10:00 07/20/24 08:48 20 MG Vancomycin HCl 100 ml @ 100 mls/hr Q8H IV 07/19/24 12:00 07/21/24 03:57 100 MLS/HR Clonidine HCl 0.2 mg Q6HP PRN PO 07/19/24 15:15 07/20/24 17:33 0.2 MG Laboratory Results Laboratory Tests 07/18/24 06:18 07/20/24 11:00 Chemistry Test 07/20/24 11:00 Calcium Level 9.1 mg/dL (8.7-10.4) Urinalysis Test 07/17/24 09:04 Urine Color Yellow (Yellow) Urine Clarity Turbid (Clear) H Urine pH 6.0 (5.0-9.0) Urine Specific [place] 1.017 (1.001-1.035) Urine Protein 3+ (Negative) H Urine Ketones Negative (Negative) Urine Blood 1+ /uL (Negative) H Urine Nitrite Negative (Negative) Urine Bilirubin Negative (Negative) Urine Urobilinogen Normal mg/dL (Negative) Urine Leukocyte Esterase Negative /uL (Negative) Urine RBC 1 /hpf (0 - 3) Urine WBC 4 /hpf (0 - 3) Urine Squamous Epithelial Cells None seen /hpf (<5) Urine Bacteria None seen /hpf (None Seen) Urine Hyaline Casts Few /lpf (0 - 2) Urine Glucose 4+ mg/dL (Normal) H Microbiology Microbiology Date/Time Source Procedure Growth Status 07/18/24 22:45 Voided Urine Urine Culture - Preliminary Resulted 07/18/24 13:50 Blood Blood Culture - Preliminary NO GROWTH AFTER 48 HOURS OF INCUBATION. Resulted 07/17/24 23:00 Nose MRSA Screen - Final Complete Labs and/or images reviewed: Labs reviewed by me, Image(s) reviewed by me Assessment/Plan Assessment/Plan Acute intractable abdominal pain with nausea and vomiting Sepsis secondary to urinary tract infection : Treated with vancomycin and Zosyn Urinary tract infection: Blood cultures negative, urine cultures negative Hypertension Diabetes History of cholecystectomy History of hernia repair Recent history of colitis treated at [facility] and UTI treated [facility] Current meth abuser and marijuana abuse:Counselling Patient afebrile stable vital signs ambulating and eating well being discharged home plan agreeable with the patient Plan discussed with: Patient Date of Service: Jul 21, 2024 Billing Provider: STAN TREVINO MD Common Visit Codes: [id number] INP/OBS CARE(HIGH) STAN TREVINO MD Jul 21, 2024 09:19
[2024-07-21] MEDS ORDERED: LEVO500T91 PO (09:26)
[2024-07-21] MEDS ORDERED: METR-344 PO (09:26)
--- NOTE | 2024-07-21 09:26 | DVHDS2 ---
Discharge Summary Date of Admission Jul 17, 2024 at 13:21 Date of Discharge: Jul 21, 2024 Admitting Diagnosis Abdominal pain and nausea Wounds: None Labs/Diagnostic Data: Laboratory Results Test 07/21/24 06:21 07/20/24 11:00 07/19/24 06:36 07/18/24 06:18 POC Glucose 163 mg/dl (70-106) Sodium Level 139 mmol/L (136-145) Potassium Level 3.8 mmol/L (3.5-5.1) Chloride Level 107 mmol/L (98-107) Carbon Dioxide Level 27 mmol/L (20-31) Anion Gap 5 (5-15) Blood Urea Nitrogen 10 mg/dL (9-23) Creatinine 1.07 mg/dL (0.700-1.30) Glomerular Filtration Rate Calc 86 mL/min (>90) BUN/Creatinine Ratio 9.3 (10.0-20.0) Serum Glucose 186 mg/dL (74-106) Calcium Level 9.1 mg/dL (8.7-10.4) Vancomycin Level Trough 11.3 ug/mL (5-10) Random Vancomycin Level 7.5 ug/mL (5-10) White Blood Count 7.7 10^3/uL (4.4-10.8) Red Blood Count 3.74 10^6/uL (4.5-5.90) Hemoglobin 11.0 g/dL (13.5-17.5) Hematocrit 32.4 % (41.0-53.0) Mean Corpuscular Volume 86.5 fL (80.0-100.0) Mean Corpuscular Hemoglobin 29.4 pg (28.0-32.0) Mean Corpuscular Hemoglobin Concent 33.9 g/dL (32.0-36.0) Red Cell Distribution Width 14.8 % (11.8-14.3) Platelet Count 487 10^3/uL (140-450) Mean Platelet Volume 7.1 fL (6.9-10.8) Neutrophils (%) (Auto) 65.2 % (37.0-80.0) Lymphocytes (%) (Auto) 21.4 % (10.0-50.0) Monocytes (%) (Auto) 11.2 % (0.0-12.0) Eosinophils (%) (Auto) 2.0 % (0.0-7.0) Basophils (%) (Auto) 0.2 % (0.0-2.0) Neutrophils # (Auto) 5.0 10 ^3/uL (1.6-8.6) Lymphocytes # (Auto) 1.6 10 ^3/uL (0.4-5.4) Monocytes # (Auto) 0.9 10 ^3/uL (0-1.3) Eosinophils # (Auto) 0.2 10 ^3/uL (0-0.8) Basophils # (Auto) 0 10 ^3/uL (0-0.2) Nucleated Red Blood Cells 0.0 % Total Bilirubin 0.3 mg/dL (0.2-1.0) Aspartate Amino Transferase (AST) 17 U/L (13-40) Alanine Aminotransferase (ALT) 23 U/L (7-40) Alkaline Phosphatase 100 U/L (46-116) Total Protein 5.5 g/dL (5.7-8.2) Albumin 3.0 g/dL (3.2-4.8) Test 07/17/24 13:35 07/17/24 13:00 07/17/24 09:53 07/17/24 09:04 Lactic Acid Level 1.1 mmol/L (0.4-2.0) Hemoglobin A1c 12.0 % A1C (<5.7) Plasma/Serum Blood Alcohol < 3.0 mg/dL (<10) Lipase 192 U/L (12-53) Urine Color Yellow (Yellow) Urine Clarity Turbid (Clear) Urine pH 6.0 (5.0-9.0) Urine Specific [place] 1.017 (1.001-1.035) Urine Protein 3+ (Negative) Urine Ketones Negative (Negative) Urine Blood 1+ /uL (Negative) Urine Nitrite Negative (Negative) Urine Bilirubin Negative (Negative) Urine Urobilinogen Normal mg/dL (Negative) Urine Leukocyte Esterase Negative /uL (Negative) Urine RBC 1 /hpf (0 - 3) Urine WBC 4 /hpf (0 - 3) Urine Squamous Epithelial Cells None seen /hpf (<5) Urine Bacteria None seen /hpf (None Seen) Urine Hyaline Casts Few /lpf (0 - 2) Urine Glucose 4+ mg/dL (Normal) Urine Opiates Screen Neg (NEGATIVE) Urine Fentanyl Screen Neg (NEGATIVE) Urine Barbiturates Screen Neg (NEGATIVE) Urine Phencyclidine Screen Neg (NEGATIVE) Urine Amphetamines Screen Pos (NEGATIVE) Urine Benzodiazepines Screen Neg (NEGATIVE) Urine Cocaine Screen Neg (NEGATIVE) Urine Cannabinoids Screen Pos (NEGATIVE) Test 07/17/24 08:47 07/17/24 08:43 Blood Gas Specimen Type Arterial Blood Gas Sample Site Right radial Blood Gas Patient Temperature 37.0 Arterial Blood Date Drawn [id number] Arterial Blood pH 7.348 (7.350-7.450) Arterial Blood Partial Pressure CO2 32.2 mmHg (35.0-48.0) Arterial Blood Partial Pressure O2 79.9 mmHg (83.0-108.0) Arterial Blood HCO3 17.3 mmol/L (21.0-28.0) Arterial Blood Oxygen Saturation 94.8 % (94.0-98.0) Arterial Blood Base Excess -7.2 mmol/L (-2.0-3.0) Arterial Blood Oxyhemoglobin 93.7 % (94.0-98.0) Arterial Blood Carboxyhemoglobin 0.7 % (0.5-1.5) Arterial Blood Methemoglobin 0.5 % (0.0-1.5) Abhay Test Yes Blood Gas Total Hemoglobin 13.20 g/dL (13.5-17.5) Blood Gas Modality Room air FiO2 % 21.0 Influenza Type A Antigen Negative (Negative) Influenza Type B Antigen Negative (Negative) SARS-CoV-2 Antigen (Rapid) Negative (NEGATIVE) Other Laboratory Tests 07/20/24 11:00 07/18/24 06:18 Brief Hx & Hospital Course: 48-year-old male with a history of hypertension diabetes past history of cholecystectomy recent history of colitis treated at [facility] and UTI treated at [facility] marijuana abuse came in complaining of abdominal pain nausea and vomiting CT abdomen pelvis without contrast was negative blood cultures negative urine cultures negative mild UTI treated with vancomycin and Zosyn advised to stop using marijuana. At the time of discharge patient is afebrile stable vital signs and ambulating and tolerating regular diet discharged home on Levaquin and Flagyl. Consults/Reason for consult None Operations or Procedures CT abdomen pelvis without contrast Condition at Discharge: Fair Final Diagnosis/Problems List Acute intractable abdominal pain with nausea and vomiting Sepsis secondary to urinary tract infection : Treated with vancomycin and Zosyn Urinary tract infection: Blood cultures negative, urine cultures negative Hypertension Diabetes History of cholecystectomy History of hernia repair Recent history of colitis treated at [facility] and UTI treated [facility] Current meth abuser and marijuana abuse:Counselling Discharge Disposition: Home Discharge Instruct/Medications Diet: Regular Activity: Light activity Follow Up/Referral: Use medications as prescribed Follow up with your primary Dr Medications: Levaquin Flagyl Transmitted to pharmacy 39 (Time taken for discharge summary 39 minutes) Discharge Statement: "Patient was advised to return to the ER or call 911 if any headaches, dizziness, shortness of breath, chest pain, abdominal pain, bleeding, fevers, or worsening of medical condition. Patient was counseled about treatment plan, medications, possible side effects, patientverbalized understanding. All questions were answered to the best of my ability. This discharge took greater then 30 minutes in planning, reviewing documentation, counseling the patient, and discussing with other team members." ASSESSMENT ASSESSMENT Hospital Course Uneventful Assessment Acute intractable abdominal pain with nausea and vomiting Sepsis secondary to urinary tract infection : Treated with vancomycin and Zosyn Urinary tract infection: Blood cultures negative, urine cultures negative Hypertension Diabetes History of cholecystectomy History of hernia repair Recent history of colitis treated at [facility] and UTI treated [facility] Current meth abuser and marijuana abuse:Counselling Date of Service: Jul 21, 2024 Billing Provider: STAN TREVINO MD Common Visit Codes: [id number] DISCH DAY >30min STAN TREVINO MD Jul 21, 2024 09:25
== END 2024-07-21 13:09 | disposition home or self-care (01) | DRG 720 ==
LOC: ER 07:49 → OVERFLOW 13:21 → CENTRAL 13:24
PROVIDERS: ADMIT Family Medicine; ATTEND Family Medicine
DX: A41.9 Sepsis, unspecified organism (principal); N17.0 Acute kidney failure with tubular necrosis; E11.40 Type 2 diabetes mellitus with diabetic neuropathy, unspecified; K76.0 Fatty (change of) liver, not elsewhere classified; E11.65 Type 2 diabetes mellitus with hyperglycemia; E86.0 Dehydration; Z20.822 Contact with and (suspected) exposure to COVID-19; E87.5 Hyperkalemia; F12.10 Cannabis abuse, uncomplicated; F15.10 Other stimulant abuse, uncomplicated; K52.9 Noninfective gastroenteritis and colitis, unspecified; N39.0 Urinary tract infection, site not specified; I10 Essential (primary) hypertension; Z90.49 Acquired absence of other specified parts of digestive tract; Z87.891 Personal history of nicotine dependence; Z83.3 Family history of diabetes mellitus
CPT/HCPCS: 36415; 36600; 74176; 80048; 80053; 80202; 80307; 80320; 81001; 82565; 82805; 82962; 83036; 83605; 83690; 85025; 87040; 87081; 87086; 87426; 87804; 96365; 96375; 99291; G0378; J1815; J2405; J2543